=== PATIENT | female | born 1985 | race African-American/Black ===

== ENCOUNTER 2018-03-21 14:22 | Emergency (ER) | payer SELFPAY ==
[~2018-03-21] VITALS: Ht 170.2 cm; Wt 63.5 kg
[2018-03-21 14:23] VITALS: Ht 170.2 cm; Wt 63.5 kg
[2018-03-21 15:04] VITALS: BP 120/65
== END 2018-03-21 15:04 | disposition left against medical advice (07) ==
LOC: ED 14:22
DX: Z53.21 Procedure and treatment not carried out due to patient leaving prior to being seen by health care provider (principal)